=== PATIENT | male | born 1980 | race Caucasian/White ===

== ENCOUNTER 2025-03-29 12:59 | Emergency (ER) | payer OTHER ==
[2025-03-29 14:13] LABS: HEMATOCRIT 39.7 % (40.0-54.0); HEMOGLOBIN 12.9 g/dL (14.0-18.0); MEAN CORPUSCULAR HEMOGLOBIN 19.9 pg (27.0-34.0); MEAN CORPUSCULAR HGB CONC 32.5 g/dL (33.0-35.0); MEAN CORPUSCULAR VOLUME 61.2 fL (80-100); PLATELET COUNT,PLT 820 10^3/uL (150-450); RED BLOOD CELL COUNT 6.49 10^6/uL (4.6-6.2); WHITE BLOOD CELL COUNT,WBC 7.7 10^3/uL (5.0-10.0)
[2025-03-29 14:18] LABS: BASOPHILS PERCENT AUTO 1.8 % (0.0-1.0); EOSINOPHILS PERCENT AUTO 3.8 % (1.0-3.0); MONOCYTES PERCENT AUTO 13.2 % (2-8); NEUTROPHILS PERCENT AUTO 40.2 % (42.2-75.2)
[2025-03-29] MEDS: Orphenadrine 60 MG/2 ML Inj IM ONE (14:19)
[2025-03-29 14:30] LABS: A/G RATIO 1.3; ALBUMIN 4.3 g/dL (3.4-5.0); ANION GAP 13.3 mEq/L (7-13); BILIRUBIN TOTAL 1.9 mg/dL (0.2-1.0); BUN/CREATININE RATIO 8.6 (No establ ref range); CALCIUM 9.4 mg/dL (8.5-10.1); CREATININE 1.16 mg/dL (0.70-1.30); EST CRCL DRUG DOSING (CG) 96.45 mL/min; POTASSIUM,K 4.3 mmol/L (3.5-5.1); PROTEIN TOTAL,TP 7.6 g/dL (6.4-8.2)
[2025-03-29 14:34] LABS: PROTHROMBIN TIME 10.4 SEC (9.0-12.0); PTT,PARTIAL THROMBOPLSTIN TIME 27.6 SEC (22.0-34.0)
[2025-03-29 14:37] LABS: BAND PERCENT MAN 2 %; EOSINOPHILS PERCENT MAN 2 % (1-3); LYMPHOCYTES PERCENT MAN 47 % (20-50); MICROCYTOSIS 1+ SLIGHT; MONOCYTES PERCENT MAN 6 % (2-8); NRBC MANUAL 3 /100WBC; SEG NEUTROPHILS PERCENT MAN 43 % (42-75)
== END 2025-03-29 14:41 | disposition home or self-care (01) ==
LOC: DL.ED 12:59
DX: M62.838 Other muscle spasm (principal); M25.512 Pain in left shoulder
CPT/HCPCS: 36415; 71045; 73030; 80053; 84484; 85025; 85610; 85730; 93005; 93010; 96372; 99284; J2360